=== PATIENT | male | born 1960 | race Caucasian/White ===

== ENCOUNTER 2021-01-27 18:17 | Inpatient (IN) | payer MEDICAID ==
[~2021-01-27] VITALS: Ht 182.9 cm; Wt 98.7 kg
[2021-01-27 19:16] LABS: BASOPHILS % (AUTO) 1 % (0-1); EOSINOPHILS % (AUTO) 1 % (1-7); LYMPHOCYTES % (AUTO) 17 % (22-44); MEAN CORPUSCULAR HEMOGLOBIN 34.7 pg (27.5-34.5); MEAN CORPUSCULAR HGB CONC 32.9 g/dL (33.2-36.2); MEAN PLATELET VOLUME 9.1 fL (7.4-10.4); MONOCYTES % (AUTO) 8 % (2-9); NEUTROPHILS % (AUTO) 73 % (42-75); PLATELET COUNT 259 x10^3/uL (130-400); RED BLOOD COUNT 4.97 x10^6/uL (4.38-5.82); RED CELL DISTRIBUTION WIDTH 16.6 % (9.4-14.8)
[2021-01-27 19:23] LABS: ALANINE AMINOTRANSFERASE 96 U/L (12-78); ALBUMIN 3.7 g/dL (3.4-5.0); CALCIUM 9.2 mg/dL (8.5-10.1); CHLORIDE 106 mmol/L (98-107); CREATININE 0.98 mg/dL (0.7-1.3)
[2021-01-27 19:27] LABS: ALKALINE PHOSPHATASE 135 U/L (45-117); BILIRUBIN,TOTAL 0.8 mg/dL (0.2-1.0); TOTAL PROTEIN 7.4 g/dL (6.4-8.2); TROPONIN I < 0.015 ng/mL (0.000-0.045)
[2021-01-27 19:28] LABS: D-DIMER 0.71 ug/mlFEU (0.00-0.52); INTERNATIONAL NORMALIZED RATIO 1.15 (0.93-1.1); PROTHROMBIN TIME 12.3 Seconds (9.6-11.5)
[2021-01-27 19:40] LABS: ANION GAP 6 mmol/L (5-15)
[2021-01-27 19:46] LABS: MD MORPH REVIEW ONLY
[2021-01-27 19:47] LABS: ANISOCYTOSIS 1+
[2021-01-27 19:48] LABS: <PLATELET ESTIMATE> ADEQUATE; <PLT MORPHOLOGY> NORMAL PLT MORPH
--- NOTE | 2021-01-27 19:53 | NUR ---
pt in bed wtih nc at 2l/min, lead neurodiagnostic technologist in place, call light in hand and bed rails up bilaterally. no signs or symptoms of acute distress noted. md at bedside to assess.
[2021-01-27] MEDS ORDERED: APIXABAN 5 MG TABLET PO ONE (19:56)
[2021-01-27] MEDS ORDERED: FUROSEMIDE 40 MG/4 ML IV ONE (20:00)
[2021-01-27] MEDS ORDERED: DIGOXIN 0.25 MG/ML, 2ML IVPush ONE (20:00)
[2021-01-27] MEDS ORDERED: DILTIAZEM 5 MG/ML, 5ML IVPush ONE (20:00)
[2021-01-27] MEDS ORDERED: DIGOXIN 0.25 MG/ML, 2ML ONE (20:21)
[2021-01-27] MEDS ORDERED: FUROSEMIDE 40 MG/4 ML ONE (20:22)
[2021-01-27] MEDS ORDERED: DILTIAZEM 5 MG/ML, 5ML ONE (20:22)
[2021-01-27] MEDS ORDERED: OMNIPAQUE 350 MG/ML, 75ML BOTTLE ONE (20:55)
[2021-01-27 21:04] VITALS: BP 158/89
[2021-01-27] MEDS ORDERED: ACETAMINOPHEN 325 MG TABLET PO PRN (22:00)
[2021-01-27] MEDS ORDERED: PROMETHAZINE 25 MG/ML, 1ML IM PRN (22:00)
[2021-01-28 01:49] VITALS: BP 142/90
[2021-01-28 06:11] LABS: BASOPHILS % (AUTO) 1 % (0-1); EOSINOPHILS % (AUTO) 1 % (1-7); LYMPHOCYTES % (AUTO) 21 % (22-44); MEAN PLATELET VOLUME 8.9 fL (7.4-10.4); MONOCYTES % (AUTO) 10 % (2-9); NEUTROPHILS % (AUTO) 66 % (42-75); PLATELET COUNT 250 x10^3/uL (130-400); RED BLOOD COUNT 4.73 x10^6/uL (4.38-5.82); RED CELL DISTRIBUTION WIDTH 16.3 % (9.4-14.8)
[2021-01-28 06:20] LABS: ANION GAP 3 mmol/L (5-15); CALCIUM 8.8 mg/dL (8.5-10.1); CHLORIDE 105 mmol/L (98-107)
[2021-01-28 06:25] LABS: CHOLESTEROL, TOTAL 123 mg/dL (140-239); CREATININE 1.04 mg/dL (0.7-1.3); HDL CHOL % 25 % (26-37); HDL CHOLESTEROL (DIRECT) 31 mg/dL (40-60); LDL CHOLESTEROL,CALCULATED 75 mg/dL (54-169); LDL/HDL RATIO 2.4 (0.5-3.0); TRIGLYCERIDES 86 mg/dL (50-200); VLDL CHOLESTEROL 17 mg/dL (0-25)
[2021-01-28 06:35] LABS: MD NO
[2021-01-28 06:53] VITALS: BP 129/88
[2021-01-28] MEDS ORDERED: FUROSEMIDE 20 MG/2 ML IV SCH (07:30)
[2021-01-28] MEDS: APIXABAN 5 MG TABLET PO SCH ×2 (08:43→21:08)
[2021-01-28] MEDS: THIAMINE 100MG TABLET PO/NG SCH (08:43)
[2021-01-28] MEDS: FLUTICASONE/VILANTEROL 200-25MCG/INH INH SCH (10:09)
[2021-01-28] MEDS: TIOTROPIUM BROMIDE 18 MCG/INH INH SCH (10:09)
[2021-01-28 12:36] VITALS: BP 121/71
[2021-01-28] MEDS: NICOTINE 21 MG/24 HR PATCH.TD24 TD SCH (13:00)
[2021-01-28] MEDS: DILTIAZEM 5 MG/ML, 5ML IVPush PRN (13:04)
[2021-01-28] MEDS: FUROSEMIDE 40 MG/4 ML IV SCH (17:09)
[2021-01-28 20:08] VITALS: BP 125/81
[2021-01-28] MEDS ORDERED: DILTIAZEM 30 MG TABLET PO SCH (21:00)
[2021-01-28] MEDS ORDERED: OMNIPAQUE 350 MG/ML, 100ML BOTTLE ONE (21:00)
[2021-01-29 01:34] VITALS: BP 120/85
[2021-01-29 07:19] VITALS: BP 122/80
[2021-01-29] MEDS: FUROSEMIDE 40 MG/4 ML IV SCH ×2 (08:07→17:16)
[2021-01-29] MEDS: CEFTRIAXONE PMX 2GM/50ML 50 ML IVPB SCH (08:07)
[2021-01-29] MEDS: NICOTINE 21 MG/24 HR PATCH.TD24 TD SCH (09:00)
[2021-01-29] MEDS: FLUTICASONE/VILANTEROL 200-25MCG/INH INH SCH (09:32)
[2021-01-29] MEDS: TIOTROPIUM BROMIDE 18 MCG/INH INH SCH (09:33)
[2021-01-29] MEDS: DILTIAZEM 120 MG CAP.ER.24H PO SCH (09:42)
[2021-01-29] MEDS: DOXYCYCLINE 100MG TABLET PO SCH ×2 (09:42→20:00)
[2021-01-29] MEDS: METOLAZONE 5 MG TABLET PO SCH (09:42)
[2021-01-29] MEDS: APIXABAN 5 MG TABLET PO SCH ×2 (09:42→20:00)
[2021-01-29] MEDS: THIAMINE 100MG TABLET PO/NG SCH (09:43)
[2021-01-29] MEDS: DILTIAZEM 5 MG/ML, 5ML IVPush PRN (13:04)
[2021-01-29 13:47] VITALS: BP 110/79
[2021-01-29 20:11] VITALS: BP 131/92
[2021-01-30 00:43] VITALS: BP 123/92
[2021-01-30 05:41] LABS: BASOPHILS % (AUTO) 1 % (0-1); EOSINOPHILS % (AUTO) 1 % (1-7); LYMPHOCYTES % (AUTO) 15 % (22-44); MD NO; MEAN CORPUSCULAR HEMOGLOBIN 35.1 pg (27.5-34.5); MEAN CORPUSCULAR HGB CONC 33.9 g/dL (33.2-36.2); MEAN PLATELET VOLUME 9.3 fL (7.4-10.4); MONOCYTES % (AUTO) 12 % (2-9); NEUTROPHILS % (AUTO) 71 % (42-75); PLATELET COUNT 272 x10^3/uL (130-400); RED BLOOD COUNT 5.22 x10^6/uL (4.38-5.82)
[2021-01-30 05:51] LABS: ALBUMIN 3.7 g/dL (3.4-5.0); ANION GAP 6 mmol/L (5-15); CALCIUM 9.3 mg/dL (8.5-10.1); CHLORIDE 95 mmol/L (98-107); CREATININE 1.18 mg/dL (0.7-1.3)
[2021-01-30 05:53] LABS: ALANINE AMINOTRANSFERASE 74 U/L (12-78); ALKALINE PHOSPHATASE 133 U/L (45-117); TOTAL PROTEIN 7.9 g/dL (6.4-8.2)
[2021-01-30 06:57] VITALS: BP 110/79
[2021-01-30] MEDS: TIOTROPIUM BROMIDE 18 MCG/INH INH SCH (07:00)
[2021-01-30] MEDS: FLUTICASONE/VILANTEROL 200-25MCG/INH INH SCH (07:00)
[2021-01-30] MEDS ORDERED: POTASSIUM CHLORIDE 20 MEQ TAB.ER.PRT PO ONE (07:00)
[2021-01-30] MEDS: CEFTRIAXONE PMX 2GM/50ML 50 ML IVPB SCH (07:47)
[2021-01-30] MEDS: METOLAZONE 5 MG TABLET PO SCH (07:47)
[2021-01-30] MEDS: NICOTINE 21 MG/24 HR PATCH.TD24 TD SCH (09:00)
[2021-01-30] MEDS: THIAMINE 100MG TABLET PO/NG SCH (09:18)
[2021-01-30] MEDS: DOXYCYCLINE 100MG TABLET PO SCH ×2 (09:19→20:27)
[2021-01-30] MEDS: APIXABAN 5 MG TABLET PO SCH ×2 (09:19→20:27)
[2021-01-30] MEDS: FUROSEMIDE 40 MG/4 ML IV SCH (09:19)
[2021-01-30] MEDS: DILTIAZEM 120 MG CAP.ER.24H PO SCH (09:23)
[2021-01-30] MEDS: DILTIAZEM 5 MG/ML, 5ML IVPush PRN (11:22)
[2021-01-30 13:14] VITALS: BP 117/85
[2021-01-30 20:13] VITALS: BP 118/78
[2021-01-30] MEDS: DILTIAZEM 120 MG CAP.ER.12H PO SCH (20:28)
[2021-01-31 00:56] VITALS: BP 114/77
[2021-01-31 06:12] LABS: BASOPHILS % (AUTO) 1 % (0-1); EOSINOPHILS % (AUTO) 1 % (1-7); LYMPHOCYTES % (AUTO) 15 % (22-44); MEAN CORPUSCULAR HEMOGLOBIN 34.9 pg (27.5-34.5); MEAN CORPUSCULAR HGB CONC 33.8 g/dL (33.2-36.2); MEAN PLATELET VOLUME 9.4 fL (7.4-10.4); MONOCYTES % (AUTO) 12 % (2-9); NEUTROPHILS % (AUTO) 71 % (42-75); PLATELET COUNT 299 x10^3/uL (130-400); RED BLOOD COUNT 5.62 x10^6/uL (4.38-5.82); RED CELL DISTRIBUTION WIDTH 15.5 % (9.4-14.8)
[2021-01-31 06:19] LABS: ALANINE AMINOTRANSFERASE 78 U/L (12-78); ALBUMIN 3.9 g/dL (3.4-5.0); ANION GAP 5 mmol/L (5-15); CALCIUM 9.6 mg/dL (8.5-10.1); CHLORIDE 94 mmol/L (98-107); CREATININE 1.24 mg/dL (0.7-1.3)
[2021-01-31 06:22] LABS: ALKALINE PHOSPHATASE 141 U/L (45-117); BILIRUBIN,TOTAL 1.2 mg/dL (0.2-1.0); TOTAL PROTEIN 8.3 g/dL (6.4-8.2)
[2021-01-31 06:35] LABS: MD NO
[2021-01-31 07:16] VITALS: BP 109/74
[2021-01-31] MEDS ORDERED: POTASSIUM CHLORIDE 20 MEQ TAB.ER.PRT PO ONE (08:00)
[2021-01-31] MEDS: TIOTROPIUM BROMIDE 18 MCG/INH INH SCH (08:00)
[2021-01-31] MEDS: FLUTICASONE/VILANTEROL 200-25MCG/INH INH SCH (08:00)
[2021-01-31] MEDS ORDERED: FUROSEMIDE 10 MG/ML ORAL SOL PO SCH (09:00)
[2021-01-31] MEDS ORDERED: FUROSEMIDE 40 MG TABLET PO SCH (09:00)
[2021-01-31] MEDS: NICOTINE 21 MG/24 HR PATCH.TD24 TD SCH (09:00)
[2021-01-31] MEDS: CEFTRIAXONE PMX 2GM/50ML 50 ML IVPB SCH (09:42)
[2021-01-31] MEDS: THIAMINE 100MG TABLET PO/NG SCH (09:43)
[2021-01-31] MEDS: DOXYCYCLINE 100MG TABLET PO SCH (09:43)
[2021-01-31] MEDS: DILTIAZEM 120 MG CAP.ER.12H PO SCH (09:43)
[2021-01-31] MEDS: APIXABAN 5 MG TABLET PO SCH (09:43)
[2021-01-31] MEDS ORDERED: DOXY100T PO (09:51)
[2021-01-31] MEDS ORDERED: DILT120C11 PO (09:51)
[2021-01-31] MEDS ORDERED: TIOT18CA INH (09:51)
[2021-01-31] MEDS ORDERED: NICO-587 TD (09:51)
[2021-01-31] MEDS ORDERED: FLUT1BLS INH (09:51)
[2021-01-31] MEDS ORDERED: APIX5TAB PO (09:51)
[2021-01-31] MEDS ORDERED: FURO40TA6 PO (09:51)
[2021-01-31] MEDS ORDERED: POTA20TA6 PO (09:53)
== END 2021-01-31 12:40 | disposition home or self-care (01) | DRG 291 ==
LOC: ED 19:58 → EDIP 20:04 → 5SO 20:56 → DCLOUNGE 01-31 12:23
PROVIDERS: ADMIT Family Medicine; ATTEND Hospitalist
DX: I50.41 Acute combined systolic (congestive) and diastolic (congestive) heart failure (principal); J18.9 Pneumonia, unspecified organism; J96.01 Acute respiratory failure with hypoxia; I31.3 Pericardial effusion (noninflammatory); J98.11 Atelectasis; Q21.1 Atrial septal defect; D75.1 Secondary polycythemia; D75.89 Other specified diseases of blood and blood-forming organs; E66.9 Obesity, unspecified; E83.119 Hemochromatosis, unspecified; F10.20 Alcohol dependence, uncomplicated; F17.200 Nicotine dependence, unspecified, uncomplicated; I48.91 Unspecified atrial fibrillation; I77.810 Thoracic aortic ectasia; J43.2 Centrilobular emphysema; M79.89 Other specified soft tissue disorders; R00.0 Tachycardia, unspecified; Z68.31 Body mass index [BMI] 31.0-31.9, adult; Z79.01 Long term (current) use of anticoagulants; Z82.62 Family history of osteoporosis; Z88.0 Allergy status to penicillin
CPT/HCPCS: 36415; 71045; 71275; 74177; 80048; 80053; 80061; 82607; 83605; 83735; 83880; 84145; 84443; 84484; 85025; 85379; 85610; 85730; 87040; 93005; 93306; 93970; 94640; 96374; 96375; 99285; G0378; J0696; J1940; Q9967; J1160

== ENCOUNTER 2021-03-24 06:02 | Day surgery (SDC) | payer MEDICAID ==
[~2021-03-24] VITALS: Ht 177.8 cm; Wt 97.7 kg
[~2021-03-24 06:02] MED LIST: APIX5TAB PO; DILT120C11 PO; DOXY100T PO; FLUT1BLS INH; FURO40TA6 PO; NICO-587 TD; POTA20TA6 PO; TIOT18CA INH
[2021-03-24 06:32] VITALS: BP 136/89
[2021-03-24] MEDS ORDERED: DILT120C80 PO (06:44)
[2021-03-24 07:02] LABS: ANION GAP 6 mmol/L (5-15); CALCIUM 8.9 mg/dL (8.5-10.1); CHLORIDE 108 mmol/L (98-107); CREATININE 0.77 mg/dL (0.7-1.3)
[2021-03-24] MEDS ORDERED: PROPOFOL 10 MG/ML, 20ML ONE (08:47)
== END 2021-03-24 10:26 | disposition home or self-care (01) ==
LOC: CACL 06:02
PROVIDERS: ATTEND Internal Medicine Cardiovascular Disease
DX: I48.91 Unspecified atrial fibrillation (principal); I11.0 Hypertensive heart disease with heart failure; I50.32 Chronic diastolic (congestive) heart failure; E83.110 Hereditary hemochromatosis; J44.9 Chronic obstructive pulmonary disease, unspecified; Z79.01 Long term (current) use of anticoagulants; Z79.899 Other long term (current) drug therapy; Z87.891 Personal history of nicotine dependence; Z88.0 Allergy status to penicillin
CPT/HCPCS: 36415; 80048; 92960; 93005; J2704